=== PATIENT | male | born 1965 | race Two or more races ===

== ENCOUNTER 2018-11-29 15:16 | Emergency (ER) | payer OTHER ==
[~2018-11-29] VITALS: Ht 172.7 cm; Wt 147.4 kg
[~2018-11-29 15:16] MED LIST: BENADRYL50 MG; DIOVAN320 MG; GLUCOPHAGE XR500 MG; LIPITOR20 MG; LOSOL; MEDROLPACK PO; NEURONTIN300 MG; PERCOCET 5-3251 EACH PO
[2018-11-29] MEDS ORDERED: FORTAMET1000 MG (15:49)
[2018-11-29] MEDS ORDERED: AVAPRO300 MG (15:49)
== END 2018-11-29 17:36 | disposition home or self-care (01) ==
LOC: ER 15:16
DX: M51.26 Other intervertebral disc displacement, lumbar region (principal); M54.5 Low back pain

== ENCOUNTER 2020-12-19 11:00 | Emergency (ER) | payer OTHER ==
[~2020-12-19] VITALS: Ht 172.7 cm; Wt 138.3 kg
[~2020-12-19 11:00] MED LIST changes: +AVAPRO300 MG; +FORTAMET1000 MG
[2020-12-19] MEDS ORDERED: ATACAND32 MG (11:20)
[2020-12-19] MEDS ORDERED: LANTUS SOL100 UNIT/1 (11:20)
[2020-12-19] MEDS ORDERED: [UNRECOGNIZED DRUG - OTHER] (11:21)
[2020-12-19] MEDS ORDERED: VISTARIL50 MG PO (15:03)
== END 2020-12-19 15:27 | disposition home or self-care (01) ==
LOC: ER 11:00
DX: R42 Dizziness and giddiness (principal); Z03.818 Encounter for observation for suspected exposure to other biological agents ruled out

== ENCOUNTER 2021-06-04 12:08 | Emergency (ER) | payer OTHER ==
[~2021-06-04] VITALS: Ht 172.7 cm; Wt 138.3 kg
[~2021-06-04 12:08] MED LIST changes: +ATACAND32 MG; +LANTUS SOL100 UNIT/1; +VISTARIL50 MG PO; +[UNRECOGNIZED DRUG - OTHER]
[2021-06-04] MEDS ORDERED: CYMBALTA60 MG PO (12:37)
== END 2021-06-04 17:59 | disposition home or self-care (01) ==
LOC: ER 12:08
DX: H10.9 Unspecified conjunctivitis (principal); R51.9 Headache, unspecified; H57.11 Ocular pain, right eye; Z03.818 Encounter for observation for suspected exposure to other biological agents ruled out

== ENCOUNTER 2022-09-30 17:37 | Emergency (ER) | payer OTHER ==
[~2022-09-30] VITALS: Ht 172.7 cm; Wt 131.5 kg
[~2022-09-30 17:37] MED LIST changes: +CYMBALTA60 MG PO
== END 2022-09-30 23:02 | disposition home or self-care (01) ==
LOC: ER 17:37
DX: M54.50 Low back pain, unspecified (principal); Z88.6 Allergy status to analgesic agent